=== PATIENT | female | born 1955 | race Caucasian/White ===

== ENCOUNTER 2020-11-05 11:05 | Observation (INO) | payer OTHER, MEDICARE ==
[~2020-11-05] VITALS: Ht 162.6 cm; Wt 76.4 kg
[~2020-11-05 11:05] MED LIST: AMOX-429 PO; CYAN-35 PO; FOLI1 PO
[2020-11-05 11:07] VITALS: BP 140/58
[2020-11-05 11:45] VITALS: BP 146/66
[2020-11-05] MEDS ORDERED: VIT1CAPS47 PO (12:33)
[2020-11-05] MEDS ORDERED: CALC-190 PO (12:33)
[2020-11-05 13:35] LABS: HEMATOCRIT 28.2 % (36-48); MEAN CORPUSCULAR HEMOGLOBIN 25.5 pg (27.0-33.0); MEAN CORPUSCULAR HGB CONC 29.4 g/dL (32.0-36.0); MEAN CORPUSCULAR VOLUME 86.8 fL (79-99); PLATELET COUNT (AUTO) 83 K/uL (130-400); RED BLOOD CELL COUNT(AUTO) 3.25 MIL/uL (4.00-5.50); RED CELL DISTRIBUTION WIDTH 17.3 % (11.0-15.5); WHITE BLOOD COUNT (AUTO) 3.9 K/uL (4.8-10.8)
[2020-11-05 13:46] LABS: INR 1.03 (0.85-1.15); PROTHROMBIN TIME 11.2 SEC (9.6-11.6)
[2020-11-05 13:47] LABS: PARTIAL THROMBOPLASTIN TIME 24.8 SEC (26.3-35.5)
[2020-11-05 13:48] LABS: ALBUMIN 3.3 g/dL (3.5-5.0); BILIRUBIN,TOTAL 0.4 mg/dL (0.2-1.0); CREATININE 0.8 mg/dL (0.5-1.5); POTASSIUM 4.1 mmol/L (3.5-5.1); TOTAL PROTEIN, SERUM 7.4 g/dL (6.0-8.3)
[2020-11-05] MEDS ORDERED: ACETAMINOPHEN 325 MG TAB PO PRN (14:00)
[2020-11-05] MEDS ORDERED: ACETAMINOPHEN 650 MG SUPPOSITORY RC PRN (14:00)
[2020-11-05] MEDS ORDERED: ONDANSETRON 4MG INJ IVP PRN (14:00)
[2020-11-05] MEDS ORDERED: DOCUSATE SODIUM 100 MG CAP PO PRN (14:00)
[2020-11-05] MEDS: IPRATROPIUM/ALBUTEROL SULFATE 3 ML SOLUTION IH SCH ×3 (14:00→22:47)
[2020-11-05] MEDS ORDERED: TEMAZEPAM 15 MG CAPSULE PO PRN (14:00)
[2020-11-05 14:04] LABS: EOSINOPHILS % (MANUAL) 3 % (1-6); LYMPHOCYTES % (MANUAL) 23 % (22-44); MAN.DIFF COMMENT-IMPRESSION MANUAL DIFFERENTIAL; MONOCYTES % (MANUAL) 9 % (2-9); PLATELET MORPHOLOGY COMMENT ADEQUATE; SEGMENTED NEUTROPHILS % 65 % (40-70)
[2020-11-05 15:28] LABS: CREATINE KINASE, TOTAL 45 U/L (21-232); TROPONIN I < 0.04 ng/mL (0.00-0.06)
[2020-11-05 15:29] LABS: MYOGLOBIN 23 ng/mL (10-92)
[2020-11-05 16:00] VITALS: BP 140/58
[2020-11-05] MEDS ORDERED: IOHEXOL-350 50ML VIAL IV ONE (17:50)
[2020-11-05 19:27] LABS: HEMATOCRIT 28.9 % (36-48)
[2020-11-05 19:45] LABS: CREATINE KINASE, TOTAL 46 U/L (21-232); MYOGLOBIN 29 ng/mL (10-92); TROPONIN I < 0.04 ng/mL (0.00-0.06)
[2020-11-05 20:00] VITALS: BP 101/59
[2020-11-05] MEDS: LACTATED RINGERS 1000ML 1,000 ML IV SCH (22:00)
[2020-11-05] MEDS ORDERED: OXYMETAZOLINE HCL SPRAY 15 ML BOTTLE EN PRN (23:00)
[2020-11-06] VITALS: BP 136/60
[2020-11-06 00:03] LABS: APPEARANCE,URINE Clear (CLEAR); BILIRUBIN,URINE Negative (NEGATIVE); COLOR,URINE Yellow (YELLOW); GLUCOSE, URINE (UA) Negative (NEGATIVE); KETONES,URINE Negative (NEGATIVE); LEUKOCYTE ESTERASE ,URINE Negative (NEGATIVE); NITRATE,URINE Negative (NEGATIVE); OCCULT BLOOD,URINE Negative (NEGATIVE); PROTEIN,URINE Negative (NEGATIVE); UROBILINOGEN,URINE 0.2 mg/dL (0.2-1.0)
[2020-11-06] MEDS: OXYMETAZOLINE HCL SPRAY 15 ML BOTTLE EN SCH ×3 (00:17→12:00)
[2020-11-06 00:30] LABS: AMPHET/METH SCREEN,URINE NEGATIVE (NEGATIVE); BARBITURATE SCREEN, URINE NEGATIVE (NEGATIVE); BENZODIAZEPINES SCREEN,URINE NEGATIVE (NEGATIVE); CANNABINOID SCREEN,URINE NEGATIVE (NEGATIVE); COCAINE SCREEN,URINE NEGATIVE (NEGATIVE); OPIATE SCREEN,URINE NEGATIVE (NEGATIVE); PHENCYCLIDINE SCREEN,URINE NEGATIVE (NEGATIVE)
[2020-11-06] MEDS: IPRATROPIUM/ALBUTEROL SULFATE 3 ML SOLUTION IH SCH ×4 (02:01→13:58)
[2020-11-06] MEDS: LACTATED RINGERS 1000ML 1,000 ML IV SCH ×6 (03:59→15:47)
[2020-11-06 04:00] VITALS: BP 129/59
[2020-11-06 04:42] LABS: MEAN CORPUSCULAR HEMOGLOBIN 25.4 pg (27.0-33.0); MEAN CORPUSCULAR HGB CONC 29.2 g/dL (32.0-36.0); MEAN CORPUSCULAR VOLUME 87.1 fL (79-99); PLATELET COUNT (AUTO) 66 K/uL (130-400); RED BLOOD CELL COUNT(AUTO) 2.87 MIL/uL (4.00-5.50); RED CELL DISTRIBUTION WIDTH 17.5 % (11.0-15.5)
[2020-11-06 04:56] LABS: % IRON SATURATION 4.6 % (22-44)
[2020-11-06 05:07] LABS: INR 1.1 (0.85-1.15); PROTHROMBIN TIME 11.9 SEC (9.6-11.6)
[2020-11-06 05:13] LABS: CARBON DIOXIDE 24 mmol/L (21-32); CHLORIDE 107 mmol/L (101-111); CREATINE KINASE, TOTAL 53 U/L (21-232); CREATININE 0.8 mg/dL (0.5-1.5); GLOMERULAR FILTR. RATE CALC 76 mL/min (>60); GLUCOSE,RANDOM 110 mg/dL (70-105); MYOGLOBIN 35 ng/mL (10-92); PHOSPHORUS 3.9 mg/dL (2.5-4.9); POTASSIUM 3.3 mmol/L (3.5-5.1); SODIUM SERUM 144 mmol/L (136-145); TROPONIN I < 0.04 ng/mL (0.00-0.06); UREA NITROGEN, BLOOD 9 mg/dL (7-18)
[2020-11-06 05:32] LABS: EOSINOPHILS % (MANUAL) 2 % (1-6); LYMPHOCYTES % (MANUAL) 34 % (22-44); MONOCYTES % (MANUAL) 4 % (2-9); SEGMENTED NEUTROPHILS % 60 % (40-70)
[2020-11-06 05:38] LABS: MAN.DIFF COMMENT-IMPRESSION MANUAL DIFFERENTIAL
[2020-11-06 07:30] VITALS: BP 142/52
[2020-11-06 07:37] LABS: HEMATOCRIT 27.8 % (36-48)
[2020-11-06] MEDS ORDERED: IOHEXOL-350 50ML VIAL IV ONE (07:57)
[2020-11-06] MEDS ORDERED: CEFTRIAXONE 1G VIAL IVP SCH (09:00)
[2020-11-06] MEDS ORDERED: PANTOPRAZOLE 40 MG TAB DR PO SCH (09:00)
[2020-11-06 11:00] VITALS: BP 162/66
[2020-11-06] MEDS ORDERED: OXYM15MI2 NS (13:35)
[2020-11-06] MEDS ORDERED: AMOX-426 PO (13:35)
== END 2020-11-06 15:55 | disposition home or self-care (01) ==
LOC: EDH 11:05 → 3BH 11:06
PROVIDERS: ADMIT Internal Medicine Critical Care Medicine; ATTEND Internal Medicine Critical Care Medicine
DX: R04.0 Epistaxis (principal); D64.9 Anemia, unspecified; J32.9 Chronic sinusitis, unspecified; K74.60 Unspecified cirrhosis of liver; K70.10 Alcoholic hepatitis without ascites; D69.6 Thrombocytopenia, unspecified; F17.200 Nicotine dependence, unspecified, uncomplicated; F14.10 Cocaine abuse, uncomplicated; F12.10 Cannabis abuse, uncomplicated; R11.2 Nausea with vomiting, unspecified; Z86.19 Personal history of other infectious and parasitic diseases; Z79.899 Other long term (current) drug therapy; Z98.890 Other specified postprocedural states
CPT/HCPCS: 36415 ×2; 70488; 71270; 80048; 80053; 80305; 81003; 82270; 82550 ×3; 83540; 83550; 83735; 83874 ×3; 84100; 84145; 84484 ×3; 85014 ×2; 85018 ×2; 85025; 85027; 85378; 85610 ×2; 85730; 86850; 86900; 86901; 94640 ×7; 94664; 96361 ×2; 96374; G0378 ×24; J0696; J7120 ×3; Q9967 ×2

== ENCOUNTER 2022-09-26 11:44 | Emergency (ER) | payer MEDICARE ==
[~2022-09-26] VITALS: Ht 167.6 cm; Wt 81.6 kg
[~2022-09-26 11:44] MED LIST changes: +AMOX-426 PO; -AMOX-429 PO; +CALC-190 PO; -CYAN-35 PO; -FOLI1 PO; +OXYM15MI2 NS; +VIT1CAPS47 PO
[2022-09-26 12:09] LABS: BASOPHILS % (AUTO) 0.5 % (0.0-5.0); EOSINOPHILS % (AUTO) 2.4 % (0.0-8.0); HEMATOCRIT 42.9 % (36-48); LYMPHOCYTES % (AUTO) 28.5 % (21.0-51.0); MEAN CORPUSCULAR HEMOGLOBIN 31.6 pg (27.0-33.0); MEAN CORPUSCULAR HGB CONC 33.1 g/dL (32.0-36.0); MEAN CORPUSCULAR VOLUME 95.5 fL (79-99); MONOCYTES % (AUTO) 10.6 % (3.0-13.0); NEUTROPHILS % (AUTO) 57.7 % (40.0-77.0); PLATELET COUNT (AUTO) 75 K/uL (130-400); RED BLOOD CELL COUNT(AUTO) 4.49 MIL/uL (4.00-5.50); RED CELL DISTRIBUTION WIDTH 13.6 % (11.0-15.5); WHITE BLOOD COUNT (AUTO) 3.8 K/uL (4.8-10.8)
[2022-09-26 12:32] VITALS: BP 126/76
[2022-09-26 12:43] LABS: APPEARANCE,URINE CLOUDY (CLEAR); BILIRUBIN,URINE NEGATIVE (NEGATIVE); COLOR,URINE YELLOW (YELLOW); GLUCOSE, URINE (UA) NEGATIVE (NEGATIVE); KETONES,URINE NEGATIVE (NEGATIVE); LEUKOCYTE ESTERASE ,URINE 500 Leu/uL (NEGATIVE); NITRATE,URINE NEGATIVE (NEGATIVE); OCCULT BLOOD,URINE LARGE (NEGATIVE); PH,URINE 5.5 (5.0-8.0); PROTEIN,URINE 50 mg/dL (NEGATIVE); UROBILINOGEN,URINE 0.2 mg/dL (0.2-1.0)
[2022-09-26 12:55] LABS: BACTERIA,URINE MANY /HPF (None Seen); MUCUS,URINE RARE LPF (None Seen); RBC,URINE TNTC /HPF (0-1); SQUAMOUS EPITHELIAL CELL,UR MOD /HPF (0-2); WBC,URINE TNTC /HPF (0-1)
[2022-09-26 13:47] LABS: CREATININE 0.8 mg/dL (0.5-1.5); POTASSIUM 3.7 mmol/L (3.5-5.1)
[2022-09-26 13:52] LABS: ALBUMIN 3.5 g/dL (3.5-5.0)
[2022-09-26] MEDS ORDERED: CEFTRIAXONE 1G VIAL IVPB ONE (14:30)
[2022-09-26] MEDS ORDERED: CEPH500B PO (16:59)
== END 2022-09-26 17:39 | disposition home or self-care (01) ==
LOC: EDH 11:44
DX: N30.00 Acute cystitis without hematuria (principal); K76.9 Liver disease, unspecified; K76.0 Fatty (change of) liver, not elsewhere classified; D69.6 Thrombocytopenia, unspecified; E78.00 Pure hypercholesterolemia, unspecified; I10 Essential (primary) hypertension; F17.200 Nicotine dependence, unspecified, uncomplicated; Z79.899 Other long term (current) drug therapy
CPT/HCPCS: 99285; 83735; 80053; 85025; 87077; 87088; 87186; 81001; 36415; 71045; 73660; 70450; 76700; 96374; 93005; J0696; 96365